=== PATIENT | male | born 1935 | race Caucasian/White ===

== ENCOUNTER 2017-05-24 17:31 | Emergency (ER) | payer MEDICARE ==
[~2017-05-24] VITALS: Ht 185.4 cm; Wt 96.0 kg
[2017-05-24 18:41] VITALS: BP 168/80; PULSE 74; RESP 20; TEMP 98.4; O2SAT 96
--- NOTE | 2017-05-24 18:41 | PD ---
Physical Exam Date Seen by Provider: May 24, 2017 Time Seen by Provider: 18:37 Narrative 81 y/o male who was bitten by wild racoon in right lower leg earlier today trying to save his poodle that was attacked. Minor abrasions and and 2 puncture wounds noted in posterior right bee. No Active bleeding. Tetanus years ago. Vital Signs reviewed. Patient is Stable and awaiting Bed Placement. [facility] Medical Record Reviewed: Yes Supervised Visit with ISHAN: Yes Condition: Stable Christiano Carmona May 24, 2017 18:41
[2017-05-24] MEDS ORDERED: RABIES IMMUNE GLOBULIN INJ 1,500 UNITS/10 ML VIAL IM ONE (20:15)
[2017-05-24] MEDS ORDERED: TETANUS/DIPHTHERIA TOXOID ADULT 0.5 ML VIAL IM ONE (20:15)
[2017-05-24] MEDS ORDERED: RABIES VACCINE CHICK EMB INJ 2.5 UNITS/ML SYR IM ONE (20:15)
--- NOTE | 2017-05-24 20:40 | PD ---
HPI Chief Complaint: Bite or Sting Time Seen by Provider: 20:03 Travel History International Travel<30 days: No Contact w/Intl Traveler<30days: No Traveled to known affect area: No History of Present Illness HPI Patient is an 81-year-old male presenting to the emergency department for evaluation after being bitten by a raccoon at 2:30 this afternoon. Patient states the raccoon was attacking his toy poodle and he was breaking up the altercation when he was bitten. Patient denies any pain, fever, chills. Patient is uncertain when his last tetanus vaccine was. His past medical history is significant for hyperlipidemia. [facility] Past Medical History High Cholesterol: Yes Diminished Hearing: No Tetanus Vaccination: Unknown Influenza Vaccination: Yes Social History Alcohol Use: No Tobacco Use: No Substance Use: No Allergies-Medications (Allergen,Severity, Reaction): Coded Allergies: penicillin G (Verified Allergy, Unknown, 05/24/17) Review of Systems Except as stated in HPI: all other systems reviewed are Neg Skin: Positive Other (bite stacey to right posterior calf, abrasions to right calf) Physical Exam Narrative GENERAL: Well-developed, well-nourished, alert elderly male. Resting comfortably in no acute distress. SKIN: Warm and dry. 2 superficial puncture wounds to right lower posterior leg , superficial abrasions to medial aspect of right lower leg. No induration or erythema noted. No warmth or edema noted. HEAD: Atraumatic. Normocephalic. EYES: Pupils equal and round. No scleral icterus. No injection or drainage. ENT: No nasal bleeding or discharge. Mucous membranes pink and moist. NECK: Trachea midline. No JVD. CARDIOVASCULAR: Regular rate and rhythm. RESPIRATORY: No accessory muscle use. Clear to auscultation. Breath sounds equal bilaterally. GASTROINTESTINAL: Abdomen soft, non-tender, nondistended. Hepatic and splenic margins not palpable. MUSCULOSKELETAL: Extremities without clubbing, cyanosis, or edema. No obvious deformities. NEUROLOGICAL: Awake and alert. No obvious cranial nerve deficits. Motor grossly within normal limits. Five out of 5 muscle strength in the arms and legs. Normal speech. PSYCHIATRIC: Appropriate mood and affect; insight and judgment normal. Data Data Last Documented VS Vital Signs Date Time Temp Pulse Resp B/P (MAP) Pulse Ox O2 Delivery O2 Flow Rate FiO2 05/24/17 20:16 16 05/24/17 18:41 98.4 74 168/80 (109) 96 Room Air Orders Orders Rabies Immune Globulin Inj (Hyperrab S/D (05/24/17 20:15) Rabies Vaccine Chick Emb Inj (Rabavert I (05/24/17 20:15) Tetanus/Diphtheria Tox Adult (Tetanus/Di (05/24/17 20:15) Wound Care (05/24/17 20:21) MDM Medical Decision Making Medical Screen Exam Complete: Yes Emergency Medical Condition: Yes Interpretation(s) Vital Signs Date Time Temp Pulse Resp B/P (MAP) Pulse Ox O2 Delivery O2 Flow Rate FiO2 05/24/17 20:16 16 05/24/17 18:41 98.4 74 20 168/80 (109) 96 Room Air Differential Diagnosis Cellulitis versus bite wound versus rabies exposure versus other Narrative Course Patient is an 81-year-old male presenting for evaluation after being bitten by a raccoon this afternoon. Patient's vital signs are stable, he is uncertain of last tetanus vaccine. Patient is neurovascularly intact. Patient will be administered the rabies vaccine, rabies immunoglobulin and tetanus vaccine. Patient was advised that he will need to have additional vaccinations performed at 7 days and at 21 days. Patient is returning home to [place], he was advised that he can follow-up with his local health department or at the local emergency department. Patient was educated on the signs and symptoms of of worsening infection. He verbalized understanding of these instructions. Patient is stable for discharge. Diagnosis Primary Impression: Raccoon bite Qualified Codes: W55.51XA - Bitten by raccoon, initial encounter Additional Impressions: Rabies, need for prophylactic vaccination against Encounter for prophylactic rabies immune globin Need for post exposure prophylaxis for rabies Need for tetanus booster Referrals: [facility] Dept. 1 week Patient Instructions: General Instructions, Rabies (ED), Rabies Immune Globulin (By injection), Rabies Vaccine (By injection), Rabies Vaccine (ED) Additional Instructions: You will need additional rabies vaccinations in 7 days and in 21 days. The vaccine can be obtained at your local health department. You are due for the next rabies vaccine on 05/31/17 and then on 06/14/17* . You will need to complete the series of vaccinations If the health department is closed or if it is unavailable, please go to the nearest emergency department to get these vaccines Return to the local emergency department immediately for any new or worsening symptoms including but not limited to fever, redness, swelling, increased pain. Follow-up with your primary doctor Med/Other Pt SpecificInfo: No Change to Meds Disposition: 01 DISCHARGE HOME Condition: Stable Morelia Freire May 24, 2017 20:40
== END 2017-05-24 22:56 | disposition home or self-care (01) ==
LOC: NEPD 17:31
DX: S81.851A Open bite, right lower leg, initial encounter (principal); W55.51XA Bitten by raccoon, initial encounter; Z23 Encounter for immunization; Z88.0 Allergy status to penicillin
CPT/HCPCS: 90375; 90471; 90472; 90675; 90714; 96372